=== PATIENT | female | born 1945 | race Caucasian/White ===

== ENCOUNTER → 2016-06-25 | Outpatient (CLI) | payer OTHER ==
--- NOTE | 2016-06-25 13:29 | DX ---
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 I do not identify a pathologic fracture or periosteal new bone. A round cyst in the fe moral head is either degenerative or myelomatous and unchanged. Since November 2012 and October 2013 there i s a new healed fracture deformity of the right inferior pubic ramus. Alignment remains anatomic. The hip and knee remain normally aligned. Impression: Little if any change in myelomatous involvement of the femur. If there is concern for an occult insufficiency fracture, consider MRI for further evaluation.
== END ==
LOC: FIMAGING 10:31
PROVIDERS: ATTEND Internal Medicine Hematology & Oncology
DX: C90.00 Multiple myeloma not having achieved remission (principal); C79.51 Secondary malignant neoplasm of bone

== ENCOUNTER → 2016-07-22 | Outpatient (CLI) | payer OTHER ==
[~2016-07-22] MED LIST: GADOBUTROL 10 ML VIAL IVP ONE
== END ==
LOC: FIMAGING 18:25
PROVIDERS: ATTEND Physician Assistant Surgical
DX: C90.00 Multiple myeloma not having achieved remission (principal)
CPT/HCPCS: 72157; 72158; A9585

== ENCOUNTER → 2016-08-01 | Day surgery (SDC) | payer OTHER ==
[~2016-08-01] MED LIST changes: +BUPIVACAINE 0.5% 30 ML SDV ONE; +CEFAZOLIN 2 GM/DEXTROSE/100 ML BAG IV ONE; -GADOBUTROL 10 ML VIAL IVP ONE; +HYDROCODONE/APAP 5/325 TAB ONE; +LIDOCAINE 1% 2 ML INJ ONE; +MIDAZOLAM 2 MG/2 ML VIAL ONE; +PROPOFOL/EMULSION 500 MG/50 ML BOTTLE IV ONE; +SKIN ADHESIVE (DERMABOND) 1 EACH TP ONE; +ceFAZolin 2 GM/DEXTROSE 100 ML IV ONE; +epHEDrine SULFATE 10 MG/ML SYR ONE; +fentaNYL 100 MCG/2 ML INJ IV PRN; +fentaNYL 100 MCG/2 ML INJ ONE
== END | disposition home or self-care (01) ==
LOC: FSGY 10:59
PROVIDERS: ATTEND Surgery
PROC: 05HM33Z Insertion of Infusion Device into Right Internal Jugular Vein, Percutaneous Approach (ICD-10-PCS; principal; 2016-08-01 12:30)
PROC: 0JH60XZ Insertion of Tunneled Vascular Access Device into Chest Subcutaneous Tissue and Fascia, Open Approach (ICD-10-PCS; principal; 2016-08-01 12:30)
DX: C90.00 Multiple myeloma not having achieved remission (principal); M81.0 Age-related osteoporosis without current pathological fracture; G89.29 Other chronic pain; Z79.891 Long term (current) use of opiate analgesic; Z98.1 Arthrodesis status
CPT/HCPCS: C1788; J0690; J2250; J2704; J3010

== ENCOUNTER → 2016-10-24 | Outpatient (CLI) | payer OTHER | LOC: FIMAGING 11:45 | PROVIDERS: ATTEND Nurse Practitioner | DX: C90.00 Multiple myeloma not having achieved remission (principal); M79.604 Pain in right leg; M25.551 Pain in right hip ==